=== PATIENT | female | born 1950 | race Caucasian/White ===

== ENCOUNTER → 2020-06-03 | Outpatient (CLI) | payer OTHER ==
[2020-06-03 10:26] LABS: CREATININE 0.8 mg/dL (0.6-1.0)
== END ==
LOC: CAT 09:10
PROVIDERS: ATTEND Ophthalmology
DX: J34.1 Cyst and mucocele of nose and nasal sinus (principal); D49.2 Neoplasm of unspecified behavior of bone, soft tissue, and skin; M79.89 Other specified soft tissue disorders

== ENCOUNTER → 2020-07-01 | Outpatient (CLI) | payer OTHER | LOC: LAB 13:40 | PROVIDERS: ATTEND Anesthesiology | DX: Z01.812 Encounter for preprocedural laboratory examination (principal); Z20.822 Contact with and (suspected) exposure to COVID-19 ==